=== PATIENT | female | born 1950 | race Caucasian/White ===

== ENCOUNTER 2017-04-02 15:50 | Emergency (ER) | payer MEDICARE, OTHER ==
[2017-04-02] MEDS ORDERED: Ondansetron HCl/PF 4 MG/2 ML Vial ONE (16:39)
[2017-04-02] MEDS ORDERED: Morphine 2 MG/ML SYRINGE ONE (16:39)
--- NOTE | 2017-04-02 17:03 | RAD ---
RIGHT SHOULDER THREE VIEWS: History: Patient fell and has post-traumatic right shoulder pain. Comparison: None. FINDINGS: No dislocation. Acromioclavicular and coracoclavicular maintained. There are degenerative changes of the right AC joint space. No fractures or malalignment. Visualized right ribs do not have any post- traumatic change. IMPRESSION: No fracture or dislocation. POS: [facility]
--- NOTE | 2017-04-02 17:04 | RAD ---
AP PELVIS: History: Trauma, fall. Pelvic pain. FINDINGS/IMPRESSION: Degenerative changes are present in the hip joints. No definite fracture or dislocation is identifie d. POS: [facility]
--- NOTE | 2017-04-02 17:29 | CT ---
CT CERVICAL SPINE: History: Trauma. Technique: Axial images are obtained with coronal and sagittal reconstructions. 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 Th ere is severe central and left paracentral spinal stenosis due to these large bridging posterior ost eophytes. No evidence of acute cervical spine fracture is seen. If there has been significant injury and there is concern for cord pathology, correlation with MRI m ay be of use if clinically indicated. Incidentally noted bilateral carotid bulb calcifications also noted. IMPRESSION: No evidence of acute cervical spine fractures. POS: [facility]
== END 2017-04-02 17:44 | disposition home or self-care (01) ==
LOC: ERS 15:50
DX: S16.1XXA Strain of muscle, fascia and tendon at neck level, initial encounter (principal); S40.011A Contusion of right shoulder, initial encounter; S70.00XA Contusion of unspecified hip, initial encounter; I10 Essential (primary) hypertension; W01.0XXA Fall on same level from slipping, tripping and stumbling without subsequent striking against object, initial encounter
CPT/HCPCS: 72125; 72170; 96374; 96375; J2270; J2405